=== PATIENT | male | born 1970 | race Caucasian/White ===

== ENCOUNTER 2023-03-25 22:31 | Emergency (ER) | payer MEDICAID, OTHER ==
[~2023-03-25] VITALS: Ht 193 cm; Wt 108.9 kg
[2023-03-25 22:38] VITALS: O2SAT 97
[2023-03-25] MEDS ORDERED: LORA0.5T48 PO (22:59)
[2023-03-26] MEDS ORDERED: CLINDAMYCIN HCL 150 MG CAPSULE PO ONE (00:30)
[2023-03-26] MEDS ORDERED: ONDANSETRON ODT 4 MG TAB.RAPDIS SL ONE (00:30)
[2023-03-26] MEDS ORDERED: HYDROCODONE/APAP 5-325MG TABLET PO ONE (00:30)
[2023-03-26] MEDS ORDERED: CLIN300C12 PO (00:35)
[2023-03-26] MEDS ORDERED: HYDR-3980 PO (00:35)
[2023-03-26] MEDS ORDERED: ONDANSETRON ODT 4 MG TAB.RAPDIS ONE (00:36)
[2023-03-26] MEDS ORDERED: HYDROCODONE/APAP 5-325MG TABLET ONE (00:36)
[2023-03-26] MEDS ORDERED: CLINDAMYCIN HCL 300 MG CAPSULE ONE (00:36)
[2023-03-26] MEDS ORDERED: HYDR-4209 PO (15:03)
== END 2023-03-26 01:10 | disposition home or self-care (01) ==
LOC: ER 22:31
DX: K08.89 Other specified disorders of teeth and supporting structures (principal); F17.210 Nicotine dependence, cigarettes, uncomplicated; Z88.0 Allergy status to penicillin; Z79.899 Other long term (current) drug therapy
CPT/HCPCS: A4606; A4663; Q0162